=== PATIENT | female | born 1995 | race Hispanic/Latino ===

== ENCOUNTER 2021-01-20 16:19 | Emergency (ER) | payer SELFPAY ==
[2021-01-20 16:39] VITALS: BP 119/63; PULSE 68; RESP 20; TEMP 37.3; O2SAT 100
--- NOTE | 2021-01-20 17:12 | ED.NAVMDI ---
HPI - Nausea/Vomiting/Diarrhea General Chief complaint: Nausea/Vomiting/Diarrhea Stated complaint: vomiting Source: patient and RN notes reviewed Limitations: no limitations History of Present Illness HPI Narrative: The patient, a Lao speaker here with other similarly unwell female friends, presents with nausea and request for test. Patient states she is a non-smoker/nondrinker and her last menstrual period was 01 December . She comments she has nausea and emesis up to 2 times a day. No fever, diarrhea, frequency/urgency, head?chest-abdominal pains, blood/ bleeding. Symptoms are mild and worse in the morning Related Data Allergies Allergy/AdvReac Type Severity Reaction Status Date / Time No Known Allergies Allergy Verified 01/20/21 17:01 Review of Systems Review of Systems: General/Constitutional: No weight loss,fever Eyes: N0: Redness,discharge Ears/Nose/Throat: No: Epistaxis,ear discharge Respiratory: Denies: Hemoptysis Gastrointestinal: Reports vomiting,no Bleeding-rectal Skin: No Lumps, eruption Neurologic: No Focal Weakness,Sz Hematologic: Denies: Petechiae/Purpura Psychiatric: No: Suicida ideationl All Other Systems: Reviewed and Negative PMFSH Comments At time of signature, agree with nursing past medical, surgical, social and family history. There is no relevant family history pertinent to the presenting complaint Exam Narrative: General Appearance: Well appearing, No distress EYE: PERRLA, Conjunctiva clear Ears: External ear normal Nose: Normal nose Mouth/Throat: Normal appearing, Normal lips Neck: Supple Respiratory: Airway patent, No respiratory distress Cardiovascular: RRR Abdomen: Soft, Non-tender, Musculoskeletal: Full ROM Skin: Warm, Dry Neurological: A&O x3, CN II-X intact Psychiatric: Normal mood, Normal affect Course Vital Signs Vital signs: Vital Signs Temperature 99.1 F 01/20/21 16:39 Pulse Rate 68 01/20/21 16:39 Respiratory Rate 20 01/20/21 16:39 Blood Pressure 119/63 01/20/21 16:39 Pulse Oximetry 100 01/20/21 16:39 Temperature 99.1 F 01/20/21 16:39 Pulse Rate 68 01/20/21 16:39 Respiratory Rate 20 01/20/21 16:39 Blood Pressure 119/63 01/20/21 16:39 Pulse Oximetry 100 01/20/21 16:39 MDM - Nausea/Vomiting/Diarrhea Lab Data [place] [facility] [place] Positive Reference Range: Negative Urine Glucose Negative Reference Range: Negative Urine Bilirubin Negative Reference Range: Negative Urine Ketone Negative Reference Range: Negative Urine Specific [place] 1.025 Reference Range:1.001-1.035 Urine Blood Negative Reference Range: Negative * * Urine pH 7.0 Reference Range: 5.0-9.0 Urine Protein Negative Reference Range: Negative Urine Urobilinogen 0.2 Reference Range: 0.2-1.0 Urine Nitrate Negative Reference Range: Negative Urine Leukocyte Negative Reference Range: Negative Urine Color Yellow Reference Range: Yellow Urine Characteristics Clear Discharge Plan Discharge Clinical Impression: Vomiti
== END 2021-01-20 17:19 | disposition home or self-care (01) ==
PROVIDERS: Emergency Provider Emergency Medicine
DX: O21.9 Vomiting of pregnancy, unspecified (principal); Z3A.00 Weeks of gestation of pregnancy not specified
CPT/HCPCS: 81003; 81025; 87086; 87088; 99203; G0463

== ENCOUNTER 2021-09-05 16:02 | Inpatient (IN) | payer OTHER, SELFPAY ==
[2021-09-05] VITALS (22 sets, daily range): BP systolic 113–148; BP diastolic 53–93; PULSE 73–111; BMI 38.2
--- NOTE | 2021-09-05 16:02 | LDADM ---
This patient, Gina Medel, was admitted to Labor/Delivery/Recovery 102 on 09/05/21 at 16:02. Plans for labor, pain management and were discussed with patient. Patient/family oriented to hospital policies and general routines including ID bracelet, bed and alarms, visiting hours, pain management, procedures, bathroom and other care routines, personal items, smoking policy, room service/diet and guest tray routines, security routines, and visiting hours. Patient/Family are encouraged to report perceived risks to care and to ask questions if they do not understand what they are told or what they should do. See OBIX for further documentation.
[2021-09-05 16:46] LABS: Basophils Absolute Auto 0.1 K/mm3 (0.0-0.1); Basophils Percent Auto 0.5 % (0.2-1.2); Eosinophils Percent Auto 0.4 % (0-4.4); Hematocrit 33.7 % (37.0-47.0); Hemoglobin 11.1 g/dL (12.0-15.0); Immature Granulocyte Absolute 0.03 K/mm3 (0.00-0.031); Immature Granulocyte Percent A 0.3 % (0-0.5); Lymphocytes Absolute Auto 2.11 K/mm3 (0.9-3.2); Lymphocytes Percent Auto 22.6 % (18.3-44.2); Mean Corpuscular HGB Conc 32.9 g/dl (32-36); Mean Corpuscular Hemoglobin 28.4 pg (26-34); Mean Corpuscular Volume 86.2 fl (80-100); Mean Platelet Volume 10.9 fl (7.4-10.4); Monocytes Absolute Auto 0.7 K/mm3 (0.1-0.6); Monocytes Percent Auto 7.3 % (2.6-8.5); Neutrophils Absolute Auto 6.4 K/mm3 (1.3-6.7); Neutrophils Percent Auto 68.9 % (45.5-73.1); Platelet Count Result 331 k/mm3 (150-375); Red Blood Count 3.91 M/mm3 (4.2-5.4); Red Cell Distribution Width 13.6 % (11.5-14.5); White Blood Count 9.4 K/mm3 (4.5-10.0)
[2021-09-05] MEDS: OXYTOCIN 30 UNITS/NS 500 ML 30 UNITS/500 ML BAG 6 UNITS IV CONT (17:27)
[2021-09-05] MEDS: LACTATED RINGERS 1,000 ML 125 ML IV CONT (17:28)
--- NOTE | 2021-09-05 18:16 | WPDANESEPP ---
Anes - Eval Pre Procedure Procedure: labor epidural Date/Time: 09/05/21 18:16 Surgeon: bala Pre Op Diagnosis: induction Patient Data Age: 26 Gender: F Height: Weight: Last Vital Signs Pulse 92 09/05/21 18:01 BP 146/81 H 09/05/21 18:01 Allergies Allergy/AdvReac Type Severity Reaction Status Date / Time No Known Allergies Allergy Verified 07/31/21 14:52 Home Medications Medication Instructions Recorded Confirmed Type prenat.vits,danny,[id number] 1 tablet PO DAILY #20 tabs 01/20/21 Rx promethazine 25 mg tablet 25 mg PO TID PRN nausea and 01/20/21 Rx vomiting #20 tabs Laboratory Tests 09/05/21 09/05/21 09/05/21 16:39 16:39 16:39 WBC 9.4 K/mm3 K/mm3 (4.5-10.0) RBC 3.91 M/mm3 L M/mm3 (4.2-5.4) Hgb 11.1 g/dL L g/dL (12.0-15.0) Hct 33.7 % L % (37.0-47.0) MCV 86.2 fl fl (80-100) MCH 28.4 pg pg (26-34) MCHC 32.9 g/dl g/dl (32-36) RDW 13.6 % % (11.5-14.5) Plt Count 331 k/mm3 k/mm3 (150-375) MPV 10.9 fl H fl (7.4-10.4) Immature Gran % (Auto) 0.3 % % (0-0.5) Neut % (Auto) 68.9 % % (45.5-73.1) Lymph % (Auto) 22.6 % % (18.3-44.2) [place] % (Auto) 7.3 % % (2.6-8.5) Eos % (Auto) 0.4 % % (0-4.4) Baso % (Auto) 0.5 % % (0.2-1.2) Lymph # (Auto) 2.11 K/mm3 K/mm3 (0.9-3.2) [place] # (Auto) 0.7 K/mm3 H K/mm3 (0.1-0.6) Eos # (Auto) 0.0 K/mm3 K/mm3 (0-0.3) Baso # (Auto) 0.1 K/mm3 K/mm3 (0.0-0.1) Abs Immat Gran (auto) 0.03 K/mm3 K/mm3 (0.00-0.031) Absolute Neuts (auto) 6.4 K/mm3 K/mm3 (1.3-6.7) Absolute Nucleated RBC 0.0 K/mm3 K/mm3 (0.0-0.012) Nucleated RBC % 0.0 % % (0.0-0.2) RPR Pending Blood Type A Positive Antibody Screen Positive Antibody Identification Pending Antigen Identification Pending GRETCHEN, IgG Interpret Pending GRETCHEN, Poly Interpret Negative GRETCHEN, Complement Interp Pending Patient hx anesthesia problems: none Family hx anesthesia problems: none Results Review: All pre-operative results and documents have been reviewed as part of the pre-operative evaluation. [facility] Family History Family History Mother Diabetes mellitus Hypertension Asthma Social History Social History Smoking status: Never smoker Substance use: never Spiritual care concerns: No Exam Day of Procedure 09/05/21 18:16 Patient weight: obese Heart: regular rate and rhythm Lungs: normal air movement Airway: Mallampati scale class II Neurological: alert and oriented Other findings: romanian speaking.Valintina interpreted.informed pt of all risks epidural.
[2021-09-06] VITALS (340 sets, daily range): BP systolic 64–160; BP diastolic 27–105; PULSE 60–202; RESP 15–20; TEMP 36.7–37.5; O2SAT 81–100
[2021-09-06] MEDS: fentaNYL CITRATE INJ (*CRX) 100 MCG/2 ML VIAL 50 MCG IV PUSH (00:33)
[2021-09-06] MEDS: LACTATED RINGERS 1,000 ML 125 ML IV CONT ×3 (00:37→12:23)
--- NOTE | 2021-09-06 07:24 | WPDHPUPDATE1 ---
History and Physical Update Update Date/Time: 09/06/21 07:24 26-year-old primipara at 40 weeks and 6 days gestation who presents for induction of labor for postdates. Pitocin was started she ruptures thereafter. She has no complaints. She has a epidural and is currently 7 cm. Will proceed with expectant management. There is reassuring status. History and Physical has been reviewed, including an updated exam of the patient. There are NO changes in the patient's condition. Risks, benefits, and alternatives have been discussed and questions answered. Patient agrees to proceed with procedure.
[2021-09-06 10:27] LABS: Rapid Plasma Reagin Non-Reactive (NonReactive)
[2021-09-06] MEDS: MIDAZOLAM HCL (*CRX) 2 MG/2 ML VIAL IV PUSH (14:45)
--- NOTE | 2021-09-06 15:17 | SUR.OPER ---
Pitocin stopped at [address] Whiteside's Request.
[2021-09-06] MEDS: BUPIVACAINE HCL 0.25% PF 30 ML VIAL INFILTRATE (15:18)
--- NOTE | 2021-09-06 15:31 | P.PCNOB_ITS ---
OB - Delivery Note Procedure Procedure: Procedures Operation Date: 09/06/21 15:00 Actual Procedure Side Surgeon p Episiotomy Repair Not Applicable Marnie Whiteside MD Induction method: AROM and Per Pitocin Protocol Delivery monitor: External FHT and Internal FHT Route of delivery: Episiotomy description: Midline Laceration Description: Perineal - 3rd Degree Delivery repair: vicryl Quantitative Blood Loss (ml): 1,700 Anesthesia type: Epidural Complications: hemorrhage Narrative: Vaginal lacerations resulted in hemorrhage. Tones remained in the delivery room to place stitches in the bleeding sites. Was bleeding too briskly to clearly see the areas without suction. After about 1500 cc blood loss we moved to the operating room. With Trendelenburg and right angle retractors and suction the bleeding is could be visualized easily in and sutures were placed. The bleeding was adequately treated with sutures. The third-degree extension of the episiotomy was repaired with 0 Vicryl. The vagina was approximated with running lock stitch. The sphincter was approximated with 0 Vicryl. The perineal body was brought together with interrupted sutures of 0 Vicryl. The subcuticular skin was then closed with a subcuticular running layer of sutures. The vagina was then packed with a vaginal packing and lubricant. [place] Baby Date of : 09/06/21 Weeks of gestation at delivery: 40 gender: Male
[2021-09-06] MEDS: OXYTOCIN 30 UNITS/NS 500 ML 30 UNITS/500 ML BAG 125 UNITS IV CONT (15:46)
[2021-09-06] MEDS: PHENYLEPHRINE 1,000 MCG/10 ML SYRINGE 100 MCG IV PUSH (15:53)
[2021-09-06 16:00] LABS: Hematocrit 23.7 % (37.0-47.0); Hemoglobin 7.8 g/dL (12.0-15.0); Mean Corpuscular HGB Conc 32.9 g/dl (32-36); Mean Corpuscular Hemoglobin 29.3 pg (26-34); Mean Corpuscular Volume 89.1 fl (80-100); Mean Platelet Volume 11.2 fl (7.4-10.4); Platelet Count Result 239 k/mm3 (150-375); Red Blood Count 2.66 M/mm3 (4.2-5.4); Red Cell Distribution Width 13.8 % (11.5-14.5); White Blood Count 26.5 K/mm3 (4.5-10.0)
[2021-09-06 16:35] LABS: Band Neutrophils Percent 8 % (0-6); Lymphocytes Absolute Manual 2.38 K/mm3 (1.1-4.5); Monocytes Absolute Manual 1.32 K/mm3 (0.1-0.90); Monocytes Percent Manual 5 % (3-9); Neutrophils Absolute Manual 22.79 K/mm3 (1.7-7.2); Neutrophils Percent Manual 78 % (46-73); Platelet Estimate Adequate (Adequate); Total Cells Counted 100
[2021-09-06 16:36] LABS: Hypochromasia 1+ (NORMAL)
[2021-09-06] MEDS: IBUPROFEN 600 MG TABLET PO (19:59)
[2021-09-06] MEDS: BENZOCAINE 20% AER SPR (*SP) 56 GM CAN 1 SPRAY TOPICAL (20:00)
[2021-09-06] MEDS: WITCH HAZEL 40 PADS 1 PAD TOPICAL (20:00)
[2021-09-06] MEDS: POLYSACCHARIDE IRON COMPLEX 150 MG CAPSULE PO (20:04)
[2021-09-06] MEDS: HYDROcodone/acetaminophen (*CRX) 5-325 MG TABLET 1 TAB PO (20:05)
[2021-09-07] MEDS: IBUPROFEN 600 MG TABLET PO ×3 (05:06→16:38)
[2021-09-07 06:01] LABS: Basophils Absolute Auto 0.1 K/mm3 (0.0-0.1); Basophils Percent Auto 0.3 % (0.2-1.2); Eosinophils Absolute Auto 0.1 K/mm3 (0-0.3); Eosinophils Percent Auto 0.2 % (0-4.4); Hemoglobin 7.9 g/dL (12.0-15.0); Immature Granulocyte Absolute 0.11 K/mm3 (0.00-0.031); Immature Granulocyte Percent A 0.5 % (0-0.5); Lymphocytes Absolute Auto 2.78 K/mm3 (0.9-3.2); Lymphocytes Percent Auto 13.6 % (18.3-44.2); Mean Corpuscular HGB Conc 32.9 g/dl (32-36); Mean Corpuscular Hemoglobin 28.9 pg (26-34); Mean Corpuscular Volume 87.9 fl (80-100); Mean Platelet Volume 11.3 fl (7.4-10.4); Monocytes Absolute Auto 1.5 K/mm3 (0.1-0.6); Monocytes Percent Auto 7.2 % (2.6-8.5); Neutrophils Absolute Auto 15.9 K/mm3 (1.3-6.7); Neutrophils Percent Auto 78.2 % (45.5-73.1); Platelet Count Result 205 k/mm3 (150-375); Red Blood Count 2.73 M/mm3 (4.2-5.4); Red Cell Distribution Width 14.2 % (11.5-14.5); White Blood Count 20.4 K/mm3 (4.5-10.0)
[2021-09-07 07:15] VITALS: BP 99/57; PULSE 78; RESP 16; TEMP 36.7; O2SAT 99
--- NOTE | 2021-09-07 08:14 | PM.OBPNVD ---
OB - PN: Subj Subjective Date/time seen: 09/07/21 08:14 Patient comments: no complaints, pain well controlled, incisional pain, tolerating diet and flatus present OB - PN: Obj Data Labs CBC & Chem 7: 09/07/21 05:09 Labs: Laboratory Results - last 24 hr 09/05/21 09/05/21 09/06/21 16:39 16:39 15:53 WBC 26.5 H RBC 2.66 L Hgb 7.8 L D Hct 23.7 L MCV 89.1 MCH 29.3 MCHC 32.9 RDW 13.8 Plt Count 239 MPV 11.2 H Immature Gran % (Auto) Not Reportable Neut % (Auto) Not Reportable Lymph % (Auto) Not Reportable [place] % (Auto) Not Reportable Eos % (Auto) Not Reportable Baso % (Auto) Not Reportable Lymph # (Auto) Not Reportable [place] # (Auto) Not Reportable Eos # (Auto) Not Reportable Baso # (Auto) Not Reportable Abs Immat Gran (auto) Not Reportable Absolute Neuts (auto) Not Reportable Absolute Nucleated RBC Not Reportable Total Counted 100 Neutrophils % (Manual) 78 H Band Neutrophils % 8 H Lymphocytes % (Manual) 9.0 L Monocytes % (Manual) 5 Nucleated RBC % Not Reportable Abs Neuts (Manual) 22.79 H Abs Lymphs (Manual) 2.38 Abs Monocytes (Manual) 1.32 H Platelet Estimate Adequate Hypochromasia 1+ RPR Non-reactive Blood Type A Positive Antibody Screen Positive Antibody Identification Anti-Matt A Antigen Identification Matt A Antigen - NEGATIVE GRETCHEN, Poly Interpret Negative Enhanced Crossmatch See Detail 09/07/21 05:09 WBC 20.4 H RBC 2.73 L Hgb 7.9 L Hct 24.0 L MCV 87.9 MCH 28.9 MCHC 32.9 RDW 14.2 Plt Count 205 MPV 11.3 H Immature Gran % (Auto) 0.5 Neut % (Auto) 78.2 H Lymph % (Auto) 13.6 L [place] % (Auto) 7.2 Eos % (Auto) 0.2 Baso % (Auto) 0.3 Lymph # (Auto) 2.78 [place] # (Auto) 1.5 H Eos # (Auto) 0.1 Baso # (Auto) 0.1 Abs Immat Gran (auto) 0.11 H Absolute Neuts (auto) 15.9 H Absolute Nucleated RBC 0.0 Total Counted Neutrophils % (Manual) Band Neutrophils % Lymphocytes % (Manual) Monocytes % (Manual) Nucleated RBC % 0.0 Abs Neuts (Manual) Abs Lymphs (Manual) Abs Monocytes (Manual) Platelet Estimate Hypochromasia RPR Blood Type Antibody Screen Antibody Identification Antigen Identification GRETCHEN, Poly Interpret Enhanced Crossmatch OB - PN A/P Assessment and Plan (1) hemorrhage: Code(s): O72.1 - Other immediate hemorrhage Status: Acute Assessment and Plan: multiple mid vaginal lacerations that were bleeding briskly, to quickly to visualize well in the labor and delivery room. Required operating room with suction. 2 units packed red blood cells were given post operatively. Her hemoglobin is around 8 this morning. She is stable. She has energy and good color. No syncope Plan day: 1 Plan: routine care Comments: No problems, routine care Time Spent With Patient Time: Total time spent is greater than 50% in coordination of care (as documented) at patient's floor/unit and/or counseling patient: Exam Const: General: comfortable, no acute distress and alert Resp: Effort & Inspection: normal respiratory effort Auscultation: no crackles, no rales and no rhonchi Cardio: Rate: regular rate Heart sounds: no click, no murmurs and no rubs GI: Inspection: non-distended GI Palp: No Tenderness to palpation present (GI) Auscultation: normal bowel sounds Other: Incision - CDI Extrem: General: normal to inspection, no pedal edema and no calf tenderness
[2021-09-07] MEDS: MULTIVIT/MIN/PREN/FOL AC/IRON TABLET 1 TAB PO (08:37)
[2021-09-07] MEDS: DOCUSATE SODIUM 100 MG CAPSULE PO ×2 (08:37→16:38)
[2021-09-07] MEDS: POLYSACCHARIDE IRON COMPLEX 150 MG CAPSULE PO ×2 (08:37→16:38)
--- NOTE | 2021-09-07 09:16 | WPDANESPN ---
Anes - Prog Note Post-Op Date/Time: 09/07/21 09:16 Cardiovascular status: normal Respiratory status: normal Airway patency: baseline Mental status: baseline Post-Op hydration status: normal Vital Signs: Last Vital Signs Temp 36.7 C 09/06/21 22:00 Pulse 93 09/06/21 22:00 Resp 16 09/06/21 22:00 BP 95/60 L 09/06/21 22:00 Pulse Ox 100 09/06/21 20:18 O2 Del Method Simple Face Mask 09/06/21 15:20 O2 Flow Rate 6 09/06/21 15:20 Pain Score (VAS): 3 I/O: Intake & Output 09/06/21 09/07/21 09/07/21 23:59 07:59 15:59 Intake Total 1237 Output Total 95 Balance 1142 Laboratory Tests 09/07/21 05:09 09/05/21 09/05/21 09/06/21 16:39 16:39 15:53 WBC 26.5 H RBC 2.66 L Hgb 7.8 L D Hct 23.7 L MCV 89.1 MCH 29.3 MCHC 32.9 RDW 13.8 Plt Count 239 MPV 11.2 H Immature Gran % (Auto) Not Reportable Neut % (Auto) Not Reportable Lymph % (Auto) Not Reportable [place] % (Auto) Not Reportable Eos % (Auto) Not Reportable Baso % (Auto) Not Reportable Lymph # (Auto) Not Reportable [place] # (Auto) Not Reportable Eos # (Auto) Not Reportable Baso # (Auto) Not Reportable Abs Immat Gran (auto) Not Reportable Absolute Neuts (auto) Not Reportable Absolute Nucleated RBC Not Reportable Total Counted 100 Neutrophils % (Manual) 78 H Band Neutrophils % 8 H Lymphocytes % (Manual) 9.0 L Monocytes % (Manual) 5 Nucleated RBC % Not Reportable Abs Neuts (Manual) 22.79 H Abs Lymphs (Manual) 2.38 Abs Monocytes (Manual) 1.32 H Platelet Estimate Adequate Hypochromasia 1+ RPR Non-reactive Blood Type A Positive Antibody Screen Positive Antibody Identification Anti-Matt A Antigen Identification Matt A Antigen - NEGATIVE GRETCHEN, Poly Interpret Negative Enhanced Crossmatch See Detail 09/07/21 05:09 WBC 20.4 H RBC 2.73 L Hgb 7.9 L Hct 24.0 L MCV 87.9 MCH 28.9 MCHC 32.9 RDW 14.2 Plt Count 205 MPV 11.3 H Immature Gran % (Auto) 0.5 Neut % (Auto) 78.2 H Lymph % (Auto) 13.6 L [place] % (Auto) 7.2 Eos % (Auto) 0.2 Baso % (Auto) 0.3 Lymph # (Auto) 2.78 [place] # (Auto) 1.5 H Eos # (Auto) 0.1 Baso # (Auto) 0.1 Abs Immat Gran (auto) 0.11 H Absolute Neuts (auto) 15.9 H Absolute Nucleated RBC 0.0 Total Counted Neutrophils % (Manual) Band Neutrophils % Lymphocytes % (Manual) Monocytes % (Manual) Nucleated RBC % 0.0 Abs Neuts (Manual) Abs Lymphs (Manual) Abs Monocytes (Manual) Platelet Estimate Hypochromasia RPR Blood Type Antibody Screen Antibody Identification Antigen Identification GRETCHEN, Poly Interpret Enhanced Crossmatch Patient Feedback: Patient satisfied with anesthetic care.
--- NOTE | 2021-09-07 09:17 | WPDANLDPN2 ---
Anes-Prog Note L&D Date/Time: 09/07/21 09:17 Comfortable throughout: labor and delivery Neuraxial method: epidural Epidural/Spinal procedure site: clean & non-tender Neuro status: Neuro function grossly intact. Cardiovascular status: normal Respiratory status: normal Airway patency: baseline Mental status: baseline Post-Op hydration status: normal Vital Signs: Last Vital Signs Temp 36.7 C 09/06/21 22:00 Pulse 93 09/06/21 22:00 Resp 16 09/06/21 22:00 BP 95/60 L 09/06/21 22:00 Pulse Ox 100 09/06/21 20:18 O2 Del Method Simple Face Mask 09/06/21 15:20 O2 Flow Rate 6 09/06/21 15:20 Pain score (VAS): 4 I/O: Intake & Output 09/06/21 09/07/21 09/07/21 23:59 07:59 15:59 Intake Total 1237 Output Total 95 Balance 1142 Patient feedback: Patient satisfied with anesthetic care.
[2021-09-07 12:14] VITALS: BP 118/54; PULSE 89; RESP 18; TEMP 36.6; O2SAT 100
[2021-09-07 19:40] VITALS: BP 127/68; PULSE 103; RESP 18; TEMP 37.1; O2SAT 97
[2021-09-08 07:30] VITALS: BP 115/65; PULSE 95; RESP 16; TEMP 37; O2SAT 98
[2021-09-08] MEDS: IBUPROFEN 600 MG TABLET PO (07:34)
[2021-09-08] MEDS: POLYSACCHARIDE IRON COMPLEX 150 MG CAPSULE PO (07:34)
[2021-09-08] MEDS: DOCUSATE SODIUM 100 MG CAPSULE PO (07:34)
--- NOTE | 2021-09-08 07:42 | PM.OBPNVD ---
OB - PN: Subj Subjective Date/time seen: 09/08/21 07:42 s/p vaginal delivery, 3rd degree laceration and hemorrhage, day 2 OB - PN: Obj Data Labs CBC & Chem 7: 09/07/21 05:09 OB - PN A/P Plan day: 2 Plan: routine care and discharge home Time Spent With Patient Time: Total time spent is greater than 50% in coordination of care (as documented) at patient's floor/unit and/or counseling patient: Review of Systems Review of Systems: All systems reviewed & are unremarkable except as noted in HPI and below Exam Const: General: cooperative, healthy appearing and comfortable
--- NOTE | 2021-09-08 12:30 | PC.NURSE ---
Patient viewed the [facility] discharge video Mother & Baby Care, The First Two Weeks . Patient was given the opportunity and encouraged to ask questions. Patient verbalized understanding of information shared and has been given the mother/baby guide for home reference.
--- NOTE | 2021-09-08 15:06 | PC.NURSE ---
[id number] Breast pump provided prior to shift due to mother's preference. With assistance of the silverware supervisor #[id number] [employer] tool instructions given on cleaning, care, usage, that there should be no pain, pumping schedule for milk production, collection, and storage of human milk. Parents are encouraged to record pumping schedule on the feeding sheet. Mother states she has not been pumping consistently. Discussed the risk of milk production as it pertains to >1500 QBL. Patient was assessed for correct placement, flange size by primary RN on 09/07. Addressed to pump for comfort and nipple stretching/stimulation for adequate milk production every 3 hours (8 times in 24 hours). Mother voiced understanding of the education shared along with mom and baby guide for additional resource information. Reported to the primary RN.
[2021-09-09 11:12] VITALS: BP 131/68; PULSE 98; RESP 20; TEMP 36.8; O2SAT 100
--- NOTE | 2021-09-13 07:38 | PM.OBDSVD ---
DS: Admitting Diagnosis Discharge Date 09/08/21 Admitting Diagnosis IOL OB - DS: Summary OB Procedures : None OB Procedures Intrapartum: Spontaneous Vag Delivery OB Procedures: : None Peripartum Data Procedures: Procedures Operation Date: 09/06/21 15:00 Actual Procedure Side Surgeon p Episiotomy Repair Not Applicable Marnie Whiteside MD Time Spent with Patient Time attestation: Total time spent providing and/or coordinating discharge services: DS: Data Data Completed and Pending Completed studies during hospitalization: Pending at discharge 09/06/21 14:09 Surgical [PTH] Routine Discharge Plan Discharge Attending physician on discharge: Marnie Whiteside Consulting providers: Sydnee Riddle ; Ana Ruiz ; Mauricio Gutierrez Discharging Clinician: Sydnee Riddle Patient Disposition: Home, Self-Care Activity: pelvic rest Diet: regular Discharge Instructions: Education: Mom and Baby Guide Given to: Mother Follow-Up: Call your delivering provider's office for an appointment to be seen in: 4 Weeks Mom and baby should come to the [facility] for the follow-up appointment. Appointment Date/Time: September 09, 2021 at 10:00 am What to expect at your follow-up visit: Blood Pressure Check Physical Assessment Call [phone] if you are unable to keep your appointment time. BREAST CARE: * Wear a snug supportive bra. * For engorgement discomfort: Breast Feeding: * Apply warm moist washcloths * Express milk as needed to relieve engorgement * Wear loose clothing Bottle Feeding: * May apply ice packs * For sore nipples: * Identify correct latch-on * Apply warm moist washcloths before and after nursing * Air dry nipples after nursing * May apply Lansinoh cream to nipples EPISIOTOMY/PERINEAL CARE: * Until bleeding stops, use your nimesh bottle after urinating * Change your pad frequently throughout the day * You may take sitz baths several times a day (fill your bathtub with warm water and soak for 20 minutes.) Do NOT bathe in the water * No tub baths until seen by your physician - You may shower ACTIVITY: * Rest as much as possible. * Do not exercise or lift anything heavier than your baby (such as laundry or other children.) * Avoid stairs or driving as much as possible. * Do not put anything into the vagina. No douching, tampons, or sexual activity until seen by physician. NOTIFY PHYSICIAN IF YOU HAVE ANY QUESTIONS OR IF ANY OF THE FOLLOWING SYMPTOMS OCCUR: * If your episiotomy becomes red, swollen, or more painful than what you have experienced in the hospital. * If your vaginal bleeding becomes foul smelling. * If your vaginal bleeding becomes more heavy than a period or if your bleeding changes from pink to bright red. However, you may pass an occasional walnut-sized clot once or twice for the first week . * If you experience a sharp, shooting pain in you calves. * If you discover a hard, reddened area on your breast or if you experience flu-like symptoms. DIET: * Eat regular, well-balanced meals. * Drink plenty of fluids daily. If , drink to thirst. Stand Alone Forms: General Discharge Information Follow-up/Referrals: Marnie Whiteside MD [Physician] - 4 Weeks Discharge Medications: New hydrocodone-acetaminophen 5-325 mg Tablet 1 tablet PO Q4H PRN (Reason: Pain Rated 4-6) 7 Days Qty: 20 0RF ibuprofen 600 mg Tablet 600 mg PO Q6H PRN (Reason: Cramping) Qty: 30 0RF polysaccharide iron complex 150 mg iron Capsule 150 mg PO BIDWM Qty: 60 0RF Continued prenat.vits,danny,[id number] Tablet 1 tablet PO DAILY Qty: 20 3RF Date of admission: 09/05/21 16:02 Primary Care Provider: PHYSICIAN,STAMPING MACHINE OPERATOR Admitting Provider: Marnie Whiteside Attending physician on admission: aMrnie Whiteside
== END 2021-09-08 13:20 | disposition home or self-care (01) | DRG 542 ==
LOC: ANHLDR 09-06 14:41 → ANHOB2 09-06 21:50
PROVIDERS: Admitting Provider Obstetrics & Gynecology; Visit Provider Obstetrics & Gynecology
PROC: 10E0XZZ Delivery of Products of Conception, External Approach (ICD-10-PCS; principal; 2021-09-06 15:00)
DX: O70.22 Third degree perineal laceration during delivery, IIIb (principal); O72.1 Other immediate postpartum hemorrhage; O67.8 Other intrapartum hemorrhage; Z3A.40 40 weeks gestation of pregnancy; Z37.0 Single live birth
CPT/HCPCS: 36415; 36430; 84112; 85025; 86592; 86850; 86880; 86900; 86901; 86902; 86905; 86922; 88307; A9270; J2250; J2370; J2590; J2795; J3010; J7120; P9016

== ENCOUNTER 2024-11-10 20:08 | Inpatient (IN) | payer OTHER, SELFPAY ==
--- OUTSIDE RECORDS SUMMARY | 2024-02-18 05:52 | XMS_ITS | Continuity of Care Document ---
Author Organization [facility] Address [address] [place] [address] Phone Care Team Providers Care Cone Cleaner Name Role Phone Barnes summer Unavailable Unavailabl e Allergies, Adverse Reactions, Alerts Substance Reaction Status Criticality No Known Allergies Active No Inform ation Procedures Procedure Date Alcohol and/or drug screening PERIODIC COMPREHENSIVE PREVENTIVE MED RE E/M; ESTABLISHED PATIENT; 18-39 Immun admin-adult or WO counseling-each add [place] aft [address] Human Papillomavirus (HPV), 9 Valent (Ga rdasil 9) Immun admin-adult or WO counseling - fir st vaccine/toxoid INFLUENZA VACCINE IIV3 URINE TEST, BY VISUAL COLOR CO MPARISON METHODS REMOVAL, NON-BIODEGRADABLE DRUG DELIVERY IMPLANT Immun admin-adult or WO counseling - fir st vaccine/toxoid Human Papillomavirus (HPV), 9 Valent (Ga rdasil 9) URINE TEST, BY VISUAL COLOR CO MPARISON METHODS Advance Directives Directive Yes / No Effective Date File Name No Information Encounters Encounter Description Practice Location Reason(s) For Visit Diagnoses Date Provider Providers Copied on Encounter [facility], [address], [place], [place], [id number] , [place] tel: [phone] Sarah On Ying No Information Barnes Summer. [address], [place], [place], [id number] , [place]. tel: [phone] PERIODIC COMPREHENSIVE PREVENTIVE MED REE/M; ESTABLISHED PATIENT; 18-39 [facility], [address], [place], [place], [id number] , tel: [phone] Sarah On Ying annual exam (chief complaint) hx (chief complaint) Encounter for screening for other disorderBody mass index (BMI) 40.0-44.9, adultEncntr for pumping station engineer exam (general) (routine) w/o abn findingsEncounter for family planning adviceEncounter for immunizationScreeni ng for cervical cancerEncounter for oth screening for malignant neoplasm of breastDietary counseling and surveillanceMorbid (severe) obesity due to excess caloriesEncounter for test, result unknown 4 Barnes Maddie. [address], [place], [place], [address] , . tel: [phone] Referring Provider: Maddie Barnes [address], [place], [address] . tel:[phone] [facility], [address], [place], [place], [id number] , tel:[phone] Sarah On Ying Implant removal (chief complaint) Body mass index (BMI) 40.0-44.9, adultEncounter for surveillance of implantable subdermal contraceptiveEncoun ter for STI screeningEncounter for immunizationDietary counseling and surveillanceMorbid (severe) obesity due to excess caloriesEncntr for pumping station engineer exam (general) (routine) w/o abn findings 4 Cameron Maddie. [address], [place], [place], [id number] , . tel:[phone] Referring Provider: Maddie Barnes [address], [place], [address] . tel:[phone] Family History Family Member Type Diagnosis Age At Onset Problem No family history of Cancer, breast Problem No family history of Cancer, colon Problem No family history of Cancer, ovarian Immunizations Vaccine Date Status Comments Gardasil 9 (HPV-9) administered Source: N ew Immunization Record FLULAVAL(VFC)/Fluzone(Privat e)/FLUARIX(317) administered Source: New Immuniza tion Record Gardasil 9 (HPV-9) administered Source: N ew Immunization Record Payers Payer name Insurance type Covered green party ID Authoriza tion(s) No Information Social History Type Description Quantity Date Captured Comments Sex Female Smoking Status No Information Sexual Orientation Straight or heterosexual Dec Gender Identity Female Chief Complaint And Reason For Visit No Information Reason For Referral Reason For Referral No Information Plan Of Treatment Date Type Action Status Nutrition Recommendation Nutrition therap y completed Nutrition Recommendation Nutrition therap y completed History Of Present Illness Encounter Date Complaint History Of Prese nt Illness annual exam Currently pregna nt: no. : 1. Parity: Term: 1. Livin. The client states using none for control. Last LMP was 01/29/2024. Patient's menses is regular. Negative for: breast discharge, breast lump(s) and breast pain. Positive for: breast self exam. Pertinent negatives include anxiety, depression and vaginal discharge. Client does not take calcium. Client does not take Vitamin D. Client does not take multivitamins. Client does not take Folic acid. The client does not use tobacco. The client does not drink alcohol. hx 28 y.o. here for Annual and HPV Vaccine #2. Denies concerns todayLMP 01/29/2024 first one since getting Implant removed. FTVD x1SA one male partner in the last yearno STI hx, declines testingLast Pap 2020 nml, dueMOC none, declines BCMs/p COVID VaccineDesires Flus/p #1 Gardasil Hx, desiresSpanish Speaking Implant removal 28 y.o. here for new patient visit and Implant removal. c/o changes in weight and abdominal pain. Not SA since isn't here at this time. Will come back for shot if decides she needs control or use condoms. LMP amenorrheic since delivery of last [id number] FTVD x1SA one male partner in the last yearno STI hx, desires testingLast Pap 2020 nml, dueMOC L Arm Nexplanon 10/06/2021, declines alternate methods/p COVID VaccineDeclines FluUnsure of Gardasil Hx, desiresSpanish Speaking Functional Status Date Functional Assessmen t No Information Instructions Date Instruction Additional Infor mation Prescribed activity/ exercise education Related to Body mass index [BMI] 40.0-44.9, adult Prescribed activity/ exercise education Related to Body mass index [BMI] 40.0-44.9, adult Assessments Type Assessment Date No Information Patient Care Teams Name Effective Dates (start - stop) Status Members No Information
--- OUTSIDE RECORDS SUMMARY | 2024-05-06 05:59 | XMS_ITS | Continuity of Care Document ---
Author Organization [facility] Address [address] [place] [address] Phone Care Team Providers Care Ceramic Tile Setter Name Role Phone Unavailable Unavailable Unavailable Allergies, Adverse Reactions, Alerts Substance Reaction Status Criticality No Known Allergies Active No Inform ation Medications Medication Instructions Dosage Effective Dates (start - stop) Status Comments + DHA 28 mg iron-975 mcg-200 mg oral pack take 1 tablet by mouth daily - Active Malagasy instructions, OK to substitute Procedures Procedure Date Alcohol and/or drug screening OFFICE/OUTPATIENT VISIT, NEW URINE TEST, BY VISUAL COLOR CO MPARISON METHODS Advance Directives Directive Yes / No Effective Date File Name No Information Encounters Encounter Description Practice Location Reason(s) For Visit Diagnoses Date Provider Providers Copied on Encounter [facility] [address], [place], [place], [id number] , [place] tel: [phone] [facility] Bashir No Information No Information OFFICE/OUTPA TIENT VISIT, [email or web address], [address], [place], [place], [address] , [place] tel:[phone] RealityMine test (chief complaint) Encounter for test, result positiveEncounte r for test, result unknown No Information Family History Family Member Type Diagnosis Age At Onset No Information Payers Payer name Insurance type Covered democrat ID Authoriza tion(s) No Information Social History Type Description Quantity Date Captured Comments Alcohol Use Details Unknown Caffeine Use Details Unknown Tobacco Use Status No Information Smoking Status No Information Sex Female Sexual Orientation Straight or heterosexual Mar Gender Identity Female Chief Complaint And Reason For Visit No Information Reason For Referral Reason For Referral No Information History Of Present Illness Encounter Date Complaint History Of Prese nt Illness test Gina is a 28 yo here today for testing. UPT positive in clinic today. Happy about , desires to continue- UPT today in clinic: positive - LMP: 01/29/2024- EGA: 7w5d- JOSEFINA: 11/04/2024- STI testing today: - OB hx:G1: term NSVB, uncomplicated G2: current- Pertinent PMH: uncomplicated, no meds Functional Status Date Functional Assessmen t No Information Instructions Date Instruction [place] jenkins - 28 yo at E GA 7w5d by LMP - VSS. Physical exam WNL. - Desires to continue and initiate care at [facility]. - Reviewed practice model and care schedule. - Discussed importance of nutrition, hydration, regular exercise, and promoting good mental health. - PNV sent. - confirmation packet given. - Follow up for PNI and IOB, appointments scheduled Related to Encounter for test, result positive Assessments Type Assessment Date No Information Patient Care Teams Name Effective Dates (start - stop) Status Members No Information
[2024-11-10] VITALS (21 sets, daily range): BP systolic 104–145; BP diastolic 63–82; PULSE 73–94; TEMP 36.6; O2SAT 97–100
--- OUTSIDE RECORDS SUMMARY | 2024-11-10 20:15 | XMS_ITS | Clinical Summary ---
Author Organization [facility] Address [address] [place] [address] Care Team Providers Care Animal Nutrition Consultant Name Role Phone Unavailable Primary Care Provider Unavailabl e Source Comments [facility],non-owned Affiliates and Associated Physician Practices is amultiple site organization consisting of ambulatory clinics and hospital sitesin [place], [place], [place] and [place]. This disclosure is being madepursuant to the Care Everywhere program and may not contain all information available regarding this patient. Last updated 17.[facility] Allergies No known active allergies Medications * Be aware that medications may not be up to date on this document. Alwaysverify current medications with the patient. Vit-DSS-Fe Fum-FA ( VITAMIN WITH IRON) tabletIndicatio ns: Take 1 tablet by mouth once daily Reasons: Active Active Problems Problem Noted Date Diagnosed Date Abnormal antibody titer 05/15/2021 NEGATIVE PAST MEDICAL HISTORY - SEE PROBLEM LIST Estimated Date of Delivery Comme nts Yes 11/04/2024 Based on last me nstrual period of 01/29/2024 Encounters Date Type Department Care Team Description 10/20/2024 1:00 PM CDT - 10/20/2024 11:59 PM CDT Hospital Encounter [facility] [address] [place] [address] Do Flanagan MD Discharge Disposition: Home or Self Care 10/13/2024 Telephone [facility] [address] [place] [address] Erin Prieto Appointment 09/28/2024 2:58 PM CDT - 09/28/2024 11:59 PM CDT Hospital Encounter [facility] [address] [place] [id number] Do Flanagan MD Discharge Disposition: Home or Self Care 09/17/2024 8:23 AM CDT - 09/17/2024 11:59 PM CDT Hospital Encounter [address] [address] Rakesh Ly MD Peterson, Renuka E., MD Discharge Disposition: Home or Self Care 09/17/2024 8:17 AM CDT - 09/17/2024 8:22 AM CDT Hospital Encounter [address] [address] Olya Rendon MD Discharge Disposition: Home or Self Care 09/17/2024 Travel 09/15/[address] [address] Paris Zarco Appointment 09/08/[address] [address] [place] Zarco Appointment 09/04/[address] [address] [place] Zarco Appointment 09/03/2024 8:48 AM CDT - 09/03/2024 11:59 PM CDT Hospital Encounter [facility] [address] [place] [id number] Rakesh Ly MD Discharge Disposition: Home or Self Care 08/27/2024 Telephone [facility] [address] [place] [phone] Erin Prieto Appointment from Last 3 Months Family History Medical History Relation Name Comments None Known Father Asthma Mother Hypertension Mother None Known Sister Relation Name Status Comments Father Alive Mother Alive Sister Alive Social History Tobacco Use Types Packs/Day Years Used Date Smoking Tobacco: Never Smokeless Tobacco: Never Alcohol Use Standard Drinks/Week Comments Never 0 (1 standard drink = 0.6 oz pur e alcohol) Estimated Date of Delivery Comme nts Yes 11/04/2024 Based on last me nstrual period of 01/29/2024 Sex and Gender Information Value Date Recorded Sex Assigned at Not on file Legal Sex Female 8:36 AM [employer] Gender Identity Not on file Sexual Orientation Not on file Last Filed Vital Signs Vital Sign Reading Time Taken Comments Blood Pressure 116/67 05/17/2021 1:42 PM [employer] Pulse 73 05/17/2021 1:42 PM [employer] Temperature - - Respiratory Rate - - Oxygen Saturation - - Inhaled Oxygen Concentration - - Weight 95.3 kg (210 lb) 05/17/2021 1:56 PM [employer] Height - - Body Mass Index - - Plan of Treatment Health Maintenance Due Date Last Done Comments HEPATITIS C SCREENING 03/31/2012 DTAP/TDAP/TD VACCINES (1 - Tdap) 2013 HEPATITIS B VACCINE (1 of 3 - 19+ 3-dose series) 2013 PAP SMEAR 2015 HPV VACCINE (1 - 3-dose SCDM series) 2021 COVID-19 VACCINE (1 - 2023-2 5 season) 2023 DEPRESSION SCREENING 03/11/2024 OB-TDAP CURRENT 08/05/2024 07/29/2021 OB-RHOGAM INJECTION 08/12/2024 INFLUENZA VACCINE (#1) 2024 02/04/2024 ZOSTER VACCINE (1 of 2) 2044 HIV SCREENING Completed 08/13/2024, 06/09/2021, 03/24/2021 OB-ONE HOUR GLUCOSE Completed 08/13/2024, 06/18/2024, 06/09/2021 OB-GROUP B STREP SCREEN Completed 10/05/2024 HIB VACCINE Aged Out No longer eligi ble based on patient's age to complete this topic MENINGOCOCCAL (Group B) VACCINE SHARED DECISION-MAKING Aged Out No longer eligible based on patient's age to complete this topic MENINGOCOCCAL GROUPS A/C/Y/W VACCINE Aged Out No longer eligible b ased on patient's age to complete this topic PNEUMOCOCCAL VACCINE Aged Out No long er eligible based on patient's age to complete this topic Respiratory Syncytial Virus (RSV) Vaccine Pt: or over 60 yrs (No Doses Required) Completed Procedures Procedure Name Priority Date/Time Associated Diagnosis Comments SONOGRAM - COMPLETE Routine 10/20/2024 1 :21 PM CDT 37 weeks gestation of (HCC) Encounter for ultrasound to assess growth (HCC) SONOGRAM - COMPLETE Routine 09/28/2024 3 :27 PM CDT 34 weeks gestation of (HCC) Encounter for ultrasound to assess growth (HCC) Encounter for follow-up ultrasound of anatomy (HCC) ECHO COMPLETE CG Routine 09/17/2024 9:32 AM CDT Encounter for anatomic survey (HCC) 31 weeks gestation of (HCC) SONOGRAM - COMPLETE Routine 09/03/2024 9 :00 AM CDT Encounter for anatomic survey (HCC) 31 weeks gestation of (HCC) Abnormal ultrasound from Last 3 Months Results * Sonogram - Complete (10/20/2024 1:21 PM CDT) Only the most recent of3 resultswithin the time period is included. Linked Results Indication ======== Screening Follow-Up Obesity complicating , Class 3 - BMI of 40.0 or greater Suspected cardiac abnormality Normal echo on 09/17/24 History ====== OB History 2. Para 1 [id number] Lab Tests Test Date Result NIPT Low risk Maternal Assessment Physical Exam Height 160 cm, 5 ft 3 in. Weight 116 kg, 255 lb. Initial weight 112 kg, 248 lb. BMI 45.17 kg/m . Initial BMI 43.93 kg/m . Weight gain 3 kg, 7 lb Method ====== Transabdominal ultrasound. View: Suboptimal view: limited by position ========= Salvador . Number of fetuses: 1 Dating ====== Date Details Gest. age JOSEFINA LMP 01/29/2024 Cycle: regular cycle 37 w + 6 d 11/04/2024 Previous U/S 04/22/2024 GA, GA 12 w + 0 d 37 w + 6 d 11/04/2024 U/S 10/20/2024 based upon AC, BPD, Femur, HC 37 w + 2 d 11/08/2024 Assigned dating based on the LMP, selected on 09/03/2024 37 w + 6 d 11/04/2024 General Evaluation Cardiac activity present. FHR 141 bpm. Presentation: cephalic Placenta: Placental site: posterior Umbilical cord: Cord vessels: 3 vessel cord - previously documented. Insertion site: normal insertion - previously documented Amniotic fluid: Amount of AF: normal. MVP 2.8 cm. AUGUSTINE 8.0 cm. Q1 1.2 cm, Q2 2.8 cm, Q3 2.4 cm, Q4 1.6 cm Biometry BPD 89.5 mm 36w 2d 27% Hadlock HC 327.8 mm 37w 2d 17% Hadlock AC 339.7 mm 37w 6d 68% Hadlock Femur 73.4 mm 37w 4d 44% Hadlock Humerus 65.7 mm 38w 1d 88% Rj HC / AC 0.96 Weight Calculation: EFW 3,235 g 53% Hadlock EFW (lb,oz) 7 lb 2 oz EFW by Hadlock ([id number]) appropriate Growth Overview Exam date GA BPD (mm) HC (mm) AC (mm) FL (mm) HL (mm) EFW (g) 09/03/2024 31w 1d 75 12% 282.1 12% 277.9 68% 59.2 28% 56.5 91% 1740 43% 09/28/2024 34w 5d 83.6 21% 308.9 13% 305.8 50% 67.4 40% 59.2 58% 2438 39% 10/20/2024 37w 6d 89.5 27% 327.8 17% 339.7 68% 73.4 44% 65.7 88% 3235 53% Anatomy The following structures could not be adequately visualized: Head / Neck Lateral ventricles. Heart / Thorax Ductal arch view: normal echo. Great vessels: normal echo. Spine Cervical spine: sagittal views previously seen, suboptimal transverse views. Thoracic spine: sagittal views previously seen, suboptimal transverse views. Extremities / Skeleton Right arm. Left hand. Feet. The following structures were documented previously: Head / Neck Cranium. Choroid plexus. Midline falx. Cavum septi pellucidi. Cerebellum. Cisterna magna. Thalami. Nuchal fold. Face Lips. Profile. Nose. Nasal bone. Orbits. Heart / Thorax 4-chamber view. RVOT view. LVOT view. 3-vessel view. 2-fnpgsw-gljodxz view. Situs. Aortic arch view. Bicaval view. Right lung. Left lung. Diaphragm. Abdomen Cord insertion. Stomach. Kidneys. Bladder. Bowel. Genitals. Spine Lumbar spine. Sacral spine. Extremities / Skeleton Right hand. Left arm. Legs. Impression ========= Single, live, intrauterine at 37w 6d size & amniotic fluid volume are normal No malformations were seen within the limitations of ultrasound Comment ======== U/S cannot detect all structural, genetic, or functional , placental, or maternal abnormalities Follow-up ======== Continue weekly testing at primary OB office as scheduled. Coding ====== Diagnoses O35.BXX0: Maternal care for other (suspected) abnormality and damage, cardiac anomalies O99.213, E66.813: Obesity complicating , Class 3 - BMI of 40.0 or greater Procedures 66159: US Preg Uterus Follow Up [facility] [employer] PACS Anatomical Region Laterality Modality Other 10/20/2024 1:21 PM CDT R Foreign Whiteside MD [facility] ORDERABLES Edited Result - Final * ECHO COMPLETE CG (09/17/2024 9:32 AM CDT) MV E pk [place] 37.48 cm/s [facility] CV F UJI PACS MV A pk [place] 68.89 cm/s [facility] CV F UJI PACS Anatomical Region Laterality Modality Ultrasound 09/17/2024 8:31 AM CDT Narrative 09/17/2024 9:37 AM CDT Name: Tucker Paulino Patient Exam Info Gender: Female Patient Status: O/P : 1995 Admit Date: 09/17/2024 Exam Date/Time: 09/17/2024 8:31 AM Site: [facility] Current Location: CARE EStudy Quality: Diagnostic quality Staff Ordering Provider: Rakesh Ly Interpreting Physician: Olya Rendon MD Sheet Turner: Benjamin Catherine [facility] Study Info Procedure: ECHO COMPLETE CG Indications: - Screening for cardiac abnormality Maternal Gestational Status GA by EDC: 33 wks , 1 days Count: 1 EDC: 11/04/2024 Type: [place] Procedure Details * Number of fetuses is 1. Age: 30 yrs Lie: Vertex Summary * The echocardiogram was within normal limits. * Small atrial and ventricular septal defects and persistent ductus arteriosus cannot be excluded as findings. Anatomic Relationships Left sided cardiac apex (levocardia). There is normal visceral-cardiac situs, and normal segmental cardiac anatomical relationship. Systemic Veins There is normal systemic venous return. Pulmonary Veins The visualized pulmonary veins drain normally to the left atrium. Right Atrium The right atrial size is normal. Left Atrium The left atrial size is normal. Atrial Septum Patent foramen ovale with open foramen flap. Color flow is right to left. Right Ventricle The right ventricular cavity size is normal. The right ventricular wall thickness is normal. The right ventricular systolic function is normal. RV Outflow Tract The right ventricular outflow tract is normal. Left Ventricle The left ventricular cavity size is normal. The left ventricular wall thickness is normal. The left ventricular systolic function is normal. Ventricular Septum There is no ventricular septal defect with no shunting. LV Outflow Tract The left ventricular outflow tract is normal. Tricuspid Valve The tricuspid valve is structurally normal. The tricuspid inflow pattern is normal. Tricuspid velocity is within the normal range. There is no tricuspid regurgitation. Mitral Valve The mitral valve is structurally normal. The mitral inflow pattern is normal. Mitral velocity is within the normal range. There is no mitral regurgitation. Aorta aortic arch visualized and is without obstruction by 2D, color flow and Doppler. Pulmonary Arteries The main pulmonary artery is normal, with confluent branch pulmonary arteries. Ductus Arteriosus The antegrade flow velocity and pattern in the ductal arch is normal. A normal ductus arteriosus is appreciated. Doppler Flow in the ductus venosus is normal. The umbilical vein flow pattern is normal. The umbilical artery flow pattern is normal. Hydrops Assessment No pericardial effusion. No ascites present. No pleural effusion(s). Rhythm The rhythm is normal. There is 1:1 AV conduction. Pulmonary Valve The pulmonic valve is normal-sized. The transpulmonic velocity is within normal range. There is no pulmonic regurgitation. Aortic Valve The aortic valve is normal-sized. The transaortic velocity is within normal range. There is no aortic regurgitation. Doppler Measurements (Fetus A) Atrioventricular Valves Name Value Normal Z-Score Percentile Atrioventricular Valves Doppler TV E Peak Velocity 0.3 m/s TV A Peak Velocity 0.6 m/s MV E Peak Velocity 0.4 m/s MV A Peak Velocity 0.7 m/s (Fetus A) Semilunar Valves Name Value Normal Z-Score Percentile Semilunar Valves Doppler PV Peak Velocity. 1.0 m/s AV Peak Velocity () 1.0 m/s (Fetus A) Heart Rate Name Value Normal Z-Score Percentile Heart Rate HR 139 bpm Report Signatures Finalized by Olya Rendon MD on 09/17/2024 09:37 AM Procedure Note Olya Rendon MD - 09/17/2024 Name: Tucker Paulino Patient Exam Info Gender: Female Patient Status: O/P : 1995 Admit Date: 09/17/2024 Exam Date/Time: 09/17/2024 8:31 AM Site: [facility] Current Location: CARE EStudy Quality: Diagnostic quality Staff Ordering Provider: Rakesh Ly Interpreting Physician: Olya Rendon MD Sheet Turner: Benjamin Catherine [facility] Study Info Procedure: ECHO COMPLETE CG Indications: - Screening for cardiac abnormality Maternal Gestational Status GA by EDC: 33 wks , 1 days Count: 1 EDC: 11/04/2024 Type: Salvador Procedure Details * Number of fetuses is 1. Age: 30 yrs Lie: Vertex Summary * The echocardiogram was within normal limits. * Small atrial and ventricular septal defects and persistent ductus arteriosus cannot be excluded as findings. Anatomic Relationships Left sided cardiac apex (levocardia). There is normal visceral-cardiac situs, and normal segmental cardiac anatomical relationship. Systemic Veins There is normal systemic venous return. Pulmonary Veins The visualized pulmonary veins drain normally to the left atrium. Right Atrium The right atrial size is normal. Left Atrium The left atrial size is normal. Atrial Septum Patent foramen ovale with open foramen flap. Color flow is right toleft. Right Ventricle The right ventricular cavity size is normal. The right ventricularwall thickness is normal. The right ventricular systolic function is normal. RV Outflow Tract The right ventricular outflow tract is normal. Left Ventricle The left ventricular cavity size is normal. The left ventricular wall thickness is normal. The left ventricular systolic function is normal. Ventricular Septum There is no ventricular septal defect with no shunting. LV Outflow Tract The left ventricular outflow tract is normal. Tricuspid Valve The tricuspid valve is structurally normal. The tricuspid inflow patternis normal. Tricuspid velocity is within the normal range. There is notricuspid regurgitation. Mitral Valve The mitral valve is structurally normal. The mitral inflow pattern is normal. Mitral velocity is within the normal range. There is no mitral regurgitation. Aorta aortic arch visualized and is without obstruction by 2D, colorflow and Doppler. Pulmonary Arteries The main pulmonary artery is normal, with confluent branch pulmonary arteries. Ductus Arteriosus The antegrade flow velocity and pattern in the ductal arch is normal.A normal ductus arteriosus is appreciated. Doppler Flow in the ductus venosus is normal. The umbilical vein flow patternis normal. The umbilical artery flow pattern is normal. Hydrops Assessment No pericardial effusion. No ascites present. No pleural effusion(s). Rhythm The rhythm is normal. There is 1:1 AV conduction. Pulmonary Valve The pulmonic valve is normal-sized. The transpulmonic velocity iswithin normal range. There is no pulmonic regurgitation. Aortic Valve The aortic valve is normal-sized. The transaortic velocity is withinnormal range. There is no aortic regurgitation. Doppler Measurements (Fetus A) Atrioventricular Valves Name Value Normal Z-ScorePercentile Atrioventricular Valves Doppler TV E Peak Velocity 0.3 m/s TV A Peak Velocity 0.6 m/s MV E Peak Velocity 0.4 m/s MV A Peak Velocity 0.7 m/s (Fetus A) Semilunar Valves Name Value Normal Z-ScorePercentile Semilunar Valves Doppler PV Peak Velocity. 1.0 m/s AV Peak Velocity () 1.0 m/s (Fetus A) Heart Rate Name Value Normal Z-ScorePercentile Heart Rate HR 139 bpm Report Signatures Finalized by Olya Rendon MD on 09/17/2024 09:37 AM Rakesh Ly MD ECHO CUPID Final Result from Last 3 Months Insurance * Guarantor: TUCKER HU Account Type Relation to Patient Date of Phone Billing Address Personal/Family 1995 [address] [place] [id number] [facility]
[2024-11-10 20:35] LABS: Hematocrit 37.5 % (37.0-47.0); Hemoglobin 11.9 g/dL (12.0-15.0); Immature Granulocyte Percent A 0.6 % (0-0.5); Lymphocytes Absolute Auto 3.82 K/mm3 (0.9-3.2); Mean Corpuscular HGB Conc 31.7 g/dl (32-36); Mean Corpuscular Hemoglobin 28.3 pg (26-34); Mean Corpuscular Volume 89.3 fl (80-100); Nucleated Red Blood Cells Absolute Auto 0.000 K/mm3 (0.0-0.012); Nucleated Red Blood Cells Perc 0.0 % (0.0-0.2); Platelet Count Result 339 k/mm3 (150-375); Red Blood Count 4.20 M/mm3 (4.2-5.4); White Blood Count 23.1 K/mm3 (4.5-10.0)
[2024-11-10] MEDS: OXYTOCIN 30 UNITS/NS 500 ML 30 UNITS/500 ML BAG 999 UNITS IV CONT (20:39)
[2024-11-10] MEDS: LIDOCAINE 1% LOCAL INJ 20 ML VIAL (20:43)
--- NOTE | 2024-11-10 20:53 | WPDOBADMIT ---
Obstetrics - Admit Note Admission Note: record reviewed. No pertinent additions to the history and/or any subsequent changes in the physical findings that are not consistent with the expected course of the were found. Patient presented to L&D for contractions and was found to be complete. She precipitously delivered an on arrival. Additions to the history and/or subsequent changes in the physical findings follow. None.
--- NOTE | 2024-11-10 20:56 | PM.OBPRVD ---
OB - Vaginal Delivery Note Procedure Delivery date: 11/10/24 Intrapartal Events: Other (precipitous delivery) Delivery monitor: None Route of delivery: Episiotomy description: None Laceration Description: Perineal - 1st Degree Delivery repair: vicryl Specimen: No Quantitative Blood Loss (ml): 100 Anesthesia type: Epidural Disposition: Floor Complications: No immediate complications Narrative: See H&P and notes for details on patient's admission and labor. She progressed to complete cervical dilation and precipitiously delivered the . The umbilical cord was doubly clamped and cut after delayed cord clamping. Care of the infant was then assumed by the nursing staff. I presented prior to delivery of the placenta, which delivered easily. Baby Date of : 11/10/24 Time of : 20:11 Gestational Age by Date: 40 Infant gender: Female presentation: vertex Placenta delivery description: Expressed and Delivery of Placenta Only Cord Vessel Description: 3 Vessels and Delayed Cord Clamping
[2024-11-10] MEDS: OXYTOCIN 30 UNITS/NS 500 ML 30 UNITS/500 ML BAG 125 UNITS IV CONT (21:22)
--- NOTE | 2024-11-10 22:07 | LDADM ---
This patient, Gina Medel, was admitted to Labor/Delivery/Recovery 106 on 11/10/24 at 20:08. Plans for labor, pain management and were discussed with patient. Patient/family oriented to hospital policies and general routines including ID bracelet, bed and alarms, visiting hours, pain management, procedures, bathroom and other care routines, personal items, smoking policy, room service/diet and guest tray routines, security routines, and visiting hours. Patient/Family are encouraged to report perceived risks to care and to ask questions if they do not understand what they are told or what they should do. See OBIX for further documentation.
[2024-11-10 23:20] LABS: Syphilis IgG/IgM Antibody Non-Reactive (Nonreactive)
[2024-11-11 00:04] VITALS: BP 93/60; PULSE 82
[2024-11-11] MEDS: WITCH HAZEL 40 PADS 1 PAD TOPICAL (00:08)
[2024-11-11] MEDS: BENZOCAINE 20% AER SPR (*SP) 56 GM CAN 1 SPRAY TOPICAL (00:08)
[2024-11-11 01:15] VITALS: BP 115/61; PULSE 76; RESP 14; TEMP 37; O2SAT 99
--- NOTE | 2024-11-11 01:34 | OBPPTRN ---
2226-Patient transferred to post room #279 Support person present. Oriented to unit, room, information board, rooming in, admission packet and security measures. Patient verbalizes understanding. [employer] economics instructor utilized
[2024-11-11 05:11] LABS: Hematocrit 30.1 % (37.0-47.0); Hemoglobin 9.8 g/dL (12.0-15.0)
[2024-11-11 07:35] VITALS: BP 127/76; PULSE 78; RESP 18; TEMP 36.6; O2SAT 98
--- NOTE | 2024-11-11 07:55 | P.PNOB_ITS ---
OB - PN: Subj Subjective Date/time seen: 11/11/24 07:55 Interval history: pp day 1 doing well mild cramping, has not tried ibuprofen OB - PN: Obj Data Labs 11/11/24 03:41 Labs: Laboratory Results - last 24 hr 11/10/24 11/10/24 11/11/24 20:28 21:02 03:41 WBC 23.1 H RBC 4.20 Hgb 11.9 L D 9.8 L Hct 37.5 30.1 L MCV 89.3 MCH 28.3 MCHC 31.7 L RDW 14.2 Plt Count 339 D MPV 11.0 H Immature Gran % (Auto) 0.6 H Neut % (Auto) 78.4 H Lymph % (Auto) 16.5 L [place] % (Auto) 4.1 Eos % (Auto) 0.1 Baso % (Auto) 0.3 Lymph # (Auto) 3.82 H [place] # (Auto) 0.9 H Eos # (Auto) 0.0 Baso # (Auto) 0.1 Abs Immat Gran (auto) 0.13 H Absolute Neuts (auto) 18.1 H Absolute Nucleated RBC 0.000 Nucleated RBC % 0.0 Syphilis IgG/IgM Ab Non-reactive Blood Type A Positive Antibody Screen Negative OB - PN A/P Time Spent With Patient Time: Total time spent is greater than 50% in coordination of care (as documented) at patient's floor/unit and/or counseling patient: Review of Systems 2 Review of Systems: All systems reviewed & are unremarkable except as noted in HPI and below Exam 2 Const: General: cooperative, healthy appearing and comfortable Resp: Effort & Inspection: normal respiratory effort Cardio: Rate: regular rate GI: Inspection: normal to inspection Back/Spine/Pelvis: Back: no CVA tenderness Skin: General skin exam: normal color
[2024-11-11] MEDS: DOCUSATE SODIUM 100 MG CAPSULE PO ×2 (09:12→16:30)
[2024-11-11] MEDS: MULTIVIT/MIN/PREN/FOL AC/IRON TABLET 1 TAB PO (09:12)
[2024-11-11] MEDS: IBUPROFEN 600 MG TABLET PO ×2 (09:13→20:15)
[2024-11-11 12:25] VITALS: BP 124/73; PULSE 74; RESP 18; TEMP 36.6; O2SAT 97
--- NOTE | 2024-11-11 13:38 | S_PTH ---
PATIENT: Gina Mckee LOC: [facility] U#:[id number] AGE/SX: 29/F ROOM: 279 RE11/10/[address]: Navdeep Whiteside MD : 1995 BED: 00 DIS: 11/12/2024 SPEC #: [id number] RECD: 11/11/24 13:49 STATUS: MERRILL RE[place]ino #: [id number] ARAMIS: 11/11/24 13:[address]: Bradly Oswald DEPT: [facility] Surgical RECD BY: Viry Garcia ENTERED: 11/11/24 13:49 SP TYPE: Surgical OTHR DR: Navdeep Whiteside MD MEDICATION ASSISTANT PHYSICIAN Tissues: A - Placenta Procedures: Hematoxylin and Eosin Stain Gross and Microscopic Level 5
[2024-11-11 19:30] VITALS: BP 129/77; PULSE 77; RESP 14; TEMP 37; O2SAT 100
[2024-11-11 19:38] VITALS: BP 107/58; PULSE 84; RESP 18; TEMP 36.3; O2SAT 100
[2024-11-11] MEDS: ACETAMINOPHEN 325 MG TABLET 650 MG PO (20:15)
[2024-11-12 03:56] VITALS: BP 122/78; PULSE 69; RESP 14; TEMP 36.6; O2SAT 99
[2024-11-12 07:25] VITALS: BP 127/69; PULSE 69; RESP 16; TEMP 36.8; O2SAT 98
[2024-11-12] MEDS: MULTIVIT/MIN/PREN/FOL AC/IRON TABLET 1 TAB PO (08:12)
[2024-11-12] MEDS: DOCUSATE SODIUM 100 MG CAPSULE PO (08:12)
[2024-11-12] MEDS: MEASLES,MUMPS,RUBELLA VACCINE 0.5 ML VIAL SUB-Q (08:16)
--- NOTE | 2024-11-12 08:32 | P.PNOB_ITS ---
OB - PN: Subj Subjective Date/time seen: 11/12/24 08:32 Interval history: pp day 1 doing well mild cramping, has not tried ibuprofen Patient comments: no complaints, pain well controlled and tolerating diet OB - PN: Obj Data Labs 11/11/24 03:41 OB - PN A/P Plan day: 2 Plan: routine care and discharge home Time Spent With Patient Time: Total time spent is greater than 50% in coordination of care (as documented) at patient's floor/unit and/or counseling patient: Exam 2 Const: General: comfortable and no acute distress Resp: Effort & Inspection: normal respiratory effort Auscultation: no rales, no rhonchi and no wheezes Cardio: Rate: regular rate Heart sounds: no click, no murmurs and no rubs GI: GI Palp: Yes Soft to palpation and No Tenderness to palpation present (GI) Auscultation: normal bowel sounds Extrem: General: normal to inspection, no pedal edema and no calf tenderness
--- NOTE | 2024-11-12 08:32 | P.DS_ITS ---
DS: Admitting Diagnosis Discharge Date 11/12/2024 Admitting Diagnosis Term DS: Discharge Diagnosis Discharge Diagnosis (1) Term delivered: Code(s): O80 - Encounter for full-term uncomplicated delivery Status: Acute OB - DS: Summary OB Procedures : None OB Procedures Intrapartum: Spontaneous Vag Delivery OB Procedures: : None Peripartum Data Laceration Description: Perineal - 1st Degree Episiotomy description: None Time Spent with Patient Time attestation: Total time spent providing and/or coordinating discharge services: DS: Data Data Completed and Pending Pending studies at discharge: Pending at discharge 11/11/24 13:38 Surgical [PTH] Routine Discharge Plan Discharge Discharging Clinician: Navdeep Whiteside Patient Disposition: Home Activity: pelvic rest Diet: regular Patient Instructions: Antibiotic Form Patient Language: Turkish Stand Alone Forms: General Discharge Information Follow-up/Referrals: Navdeep Whiteside MD [Physician, GERIATRIC PSYCHIATRIST] Discharge Medications: Continued prenat.vits,danny,[id number] Tablet 1 tablet PO DAILY Qty: 20 3RF polysaccharide iron complex 150 mg iron Capsule 150 mg PO BIDWM Qty: 60 0RF Date of admission: 11/10/24 20:08 Primary Care Provider: PHYSICIAN,CLIENT SUCCESS SPECIALIST Admitting Provider: Navdeep Whiteside Attending physician on admission: Navdeep Whiteside Condition: Stable
[2024-11-14 10:08] VITALS: BP 128/74; PULSE 94; RESP 16; TEMP 36.7; O2SAT 97
== END 2024-11-12 12:35 | disposition home or self-care (01) | DRG 560 ==
LOC: ANHLDR 22:05 → ANHOB2 11-11 00:34
PROVIDERS: Admitting Provider Obstetrics & Gynecology; Visit Provider Obstetrics & Gynecology
DX: O62.3 Precipitate labor (principal); Z37.0 Single live birth; Z3A.40 40 weeks gestation of pregnancy; O70.0 First degree perineal laceration during delivery
CPT/HCPCS: 36415; 85014; 85018; 85025; 86593; 86850; 86900; 86901; 88307; 90710; A9270; J2003; J2590